=== PATIENT | male | born 1995 | race African-American/Black ===

== ENCOUNTER 2017-05-06 21:36 | Emergency (ER) | payer OTHER ==
[2017-05-06] MEDS ORDERED: HYDROcod/ACET 5/325 Prepack 6 PO STA (22:39)
--- NOTE | 2017-05-06 22:42 | ED Physician Documentation ---
PD HPI LOWER EXT INJURY - Stated complaint Stated Complaint: ANKLE INJURY - Chief complaint Chief Complaint: Ext Problem - History obtained from History obtained from: Patient - History of Present Illness PD HPI LOW EXT INJURY LOCATION: Other (He felt a pop in the posterior of his right ankle while sprinting tonight during football, he cannot walk or bear weight.) Review of Systems Constitutional: denies: Fever, Chills Ears: reports: Reviewed and negative Cardiac: reports: Reviewed and negative Respiratory: reports: Reviewed and negative PD PAST MEDICAL HISTORY - Past Medical History Past Medical History: No - Past Surgical History Past Surgical History: No - Present Medications Home Medications: Ambulatory Orders Medication Instructions Recorded Confirmed HYDROcod/ACETAM 5/325 [[place] 5/325] 1 - 2 ea PO Q6H PRN #15 tablet 05/06/17 - Allergies Allergies/Adverse Reactions: Allergies Allergy/AdvReac Type Severity Reaction Status Date / Time No Known Drug Allergies Allergy Verified 05/06/17 21:53 - Social History Does the pt smoke?: Yes Smoking Status: Current every day smoker Does the pt drink ETOH?: Yes ETOH Use: Liquor Does the pt have substance abuse?: No - Immunizations Immunizations are current?: Yes - POLST Patient has POLST: No PD ED PE NORMAL - Vitals Vital signs reviewed: Yes - General General: Alert and oriented X 3, No acute distress - Extremities Extremities: Other (There is no tenderness of the bones of the ankle, but very tender over the Achilles tendon and no function with Cornelius's test. He cannot plantar flex the foot.) - Neuro Neuro: Alert and oriented X 3, Normal speech - Psych Psych: Normal mood, Normal affect Results - Vitals Vitals: Vital Signs - 24 hr 05/06/17 21:51 Temperature 36.5 C Heart Rate 87 Respiratory 16 Rate Blood Pressure 156/80 H O2 Saturation 100 Oxygen O2 Source Room air Procedures - Splint (location) Right leg Splint applied by: Tech Type of splint: Fiberglass, Short leg, Posterior Other: Patient tolerated well, No complications, Neurovascular intact, Crutches provided Departure - Departure Disposition: 01 Home, Self Care Clinical Impression: Achilles rupture, right Qualifiers: Encounter type: initial encounter Qualified Code(s): S86.011A - Strain of right Achilles tendon, initial encounter Condition: Good Record reviewed to determine appropriate education?: Yes Instructions: ED Tendon Rupture Achilles Prescriptions: HYDROcod/ACETAM 5/325 [[place] 5/325] 1 - 2 ea PO Q6H PRN #15 tablet PRN Reason: Pain Comments[place] to [place]opedic surgeon. Do not walk or bear weight on that foot. Keep the splint on and dry. Do not drink or drive while taking narcotic pain medication. Note that many narcotic pain relievers also contain Tylenol/acetaminophen. Please ensure that your total dose of acetaminophen from all sources does not exceed 3 g (3000 mg) per day. You may get constipated while on this medication. Take a stool softener such as Colace twice a day while you are on it. Also add an ibvn-plm-[id number] laxative such as senna or MiraLAX on any day that you do not have a bowel movement. If you received a narcotic pain medication or sedative while in the emergency department, do not drive for the next 24 hours. Your blood pressure was elevated today on check into the emergency department. This does not mean that you have hypertension, it is a common phenomenon to come to the emergency department and have elevated blood pressure. I recommend that she see your primary care physician within the week to have it rechecked when you are feeling better.
[2017-05-06] MEDS ORDERED: HYDROcod/ACET 5/325 Prepack 6 PO ONE (22:47)
--- NOTE | 2017-05-06 23:17 | XRAY Preliminary Report ---
Exam: XR Ankle 3 View RT IMPRESSION: 1. No fracture or dislocation seen. [facility] SITE ID: [id number]
--- NOTE | 2017-05-06 23:20 | XRAY Report ---
EXAM: RIGHT ANKLE RADIOGRAPHY EXAM DATE: 05/06/2017 10:55 PM. CLINICAL HISTORY: Pain after injury. COMPARISON: None. TECHNIQUE: 3 views. FINDINGS: Bones: No fracture seen. Joints: No dislocation. Ankle mortise appears intact. No ankle joint effusion identified. Soft Tissues: Mild soft tissue swelling. IMPRESSION: 1. No fracture or dislocation seen. [facility] Referring Provider Line: [phone] SITE ID: [id number]
[2017-05-06 23:37] VITALS: BP 155/87
== END 2017-05-06 23:55 | disposition home or self-care (01) ==
LOC: ED 21:36
DX: S86.011A Strain of right Achilles tendon, initial encounter (principal); X50.0XXA Overexertion from strenuous movement or load, initial encounter; Y93.61 Activity, american tackle football; Y92.321 Football field as the place of occurrence of the external cause; F17.200 Nicotine dependence, unspecified, uncomplicated; R03.0 Elevated blood-pressure reading, without diagnosis of hypertension
CPT/HCPCS: 29515; 99283

== ENCOUNTER 2017-05-20 09:07 | Day surgery (SDC) | payer OTHER ==
[2017-05-20] MEDS ORDERED: ACETAMINOPHEN 1,000 MG/100 ML 100 ML IV ONE (09:22)
[2017-05-20] MEDS ORDERED: ceFAZolin 2 GM/50 ML 2 GM/50 ML BAG IV ONE (09:22)
[2017-05-20] MEDS ORDERED: LACTATED RINGERS 1,000 ML IV ONE ×2 (09:41→11:59)
[2017-05-20] MEDS ORDERED: fentaNYL 100 MCG/2 ML VIAL IVP ONE (11:15)
[2017-05-20] MEDS ORDERED: SUCCINYLCHOLINE 200 MG/10 ML VIAL IVP ONE (11:15)
[2017-05-20] MEDS ORDERED: ONDANSETRON 4 MG/2 ML VIAL IVP ONE (11:15)
[2017-05-20] MEDS ORDERED: DEXAMETHASONE 4 MG/ML VIAL IVP ONE (11:15)
[2017-05-20] MEDS ORDERED: KETOROLAC 30 MG/ML VIAL IVP ONE (11:15)
[2017-05-20] MEDS ORDERED: LIDOCAINE-MPF 2% 5 ML VIAL IM ONE (11:15)
[2017-05-20] MEDS ORDERED: ROCURONIUM 50 MG/5 ML VIAL IVP ONE (11:15)
[2017-05-20] MEDS ORDERED: MIDAZOLAM 2 MG/2 ML VIAL IVP ONE (11:15)
[2017-05-20] MEDS ORDERED: PROPOFOL 200 MG/20 ML VIAL IVP ONE (11:15)
[2017-05-20] MEDS ORDERED: BUPIVACAINE 0.25% PF 30 ML VIAL SUBQ ONE ×2 (11:23)
[2017-05-20] MEDS: fentaNYL 100 MCG/2 ML VIAL ONE ×2 (12:49→12:54)
[2017-05-20] MEDS: HYDROmorphone 1 MG/ML CARPUJECT ONE ×2 (12:59→13:07)
[2017-05-20] MEDS: HYDROmorphone 1 MG/ML SYRINGE ONE ×2 (13:21→13:28)
[2017-05-20] MEDS ORDERED: oxyCODONE 5 MG TABLET ONE (14:15)
[2017-05-20 14:38] VITALS: BP 147/90
--- NOTE | 2017-05-20 15:38 | OPERATIVE REPORT ---
DATE OF SURGERY: 05/20/2017 00:00:00 PREOPERATIVE DIAGNOSIS: Right Achilles tendon rupture. POSTOPERATIVE DIAGNOSIS: Right Achilles tendon rupture. PROCEDURE PERFORMED: Right Achilles tendon repair. SURGEON: Joseph Reynolds MD ANESTHESIA: General. COMMERCIAL ARTIST LETTERING: Tim Saavedra DO POSTOPERATIVE PLAN: Same day surgery discharge, nonweightbearing on right leg until the 2-week followup visit. At that point, he will transition in early active motion protocol. INDICATION FOR SURGERY: This is a 22-year-old male who sustained a complete right Achilles tendon tear while playing flag football 8 days ago. He was seen in the acute period, had an abnormal Cornelius test. The ankle was resting in relative dorsiflexion, and the sulcus sign was present. The risks and benefits of surgery were discussed with the patient. The risks specific to this surgery are wound healing issues, heel pain and damage to neurovascular structures. Additional risks of all surgery include pain, bleeding, infection, damage to nearby structures, need for further surgery, DVT, PE, anesthetic risks and . We discussed nonoperative treatment. The risk of nonoperative treatment is decreased strength and increased re-rupture rate. The patient opted for operative treatment and signed a written consent form. EXAMINATION UNDER ANESTHESIA FINDINGS: A prone exam reveals a Cornelius test without any dorsiflexion when the calf is squeezed, sulcus sign. SURGICAL FINDINGS: Complete Achilles tendon rupture near the musculotendinous junction. IMPLANTS 1. 4.75 SwiveLock by [employer] x2. 2. SutureTape x2. ANTIBIOTICS: Weight based Ancef. ESTIMATED BLOOD LOSS: 5 mL. URINE OUTPUT: Not recorded. IV FLUIDS: 1300. TOURNIQUET TIME: 72 minutes at 250 mmHg. SPECIMENS: None. COMPLICATIONS: None. DISPOSITION: Stable to PACU. DVT PROPHYLAXIS 1. Early, frequent ambulation. 2. SCDs while in the hospital. 3. Aspirin 325 mg taken daily for 4 weeks. PROCEDURE IN DETAIL: The patient was met in the preoperative holding area on the day of the procedure. Operative extremity was signed. Consent was verified. He desired to proceed. He was brought to the operating room and surrendered to Anesthesia. Once general anesthesia had been obtained, the patient was placed in the prone position. All bony prominences were well-padded. Examination under anesthesia was then performed. The right limb was then prepped and draped in a standard sterile fashion. Surgical timeout was held where we confirmed the patient's identity, procedure, allergies, antibiotics, images. All were in agreement, and we proceeded. An Esmarch was used to exsanguinate the limb, and the tourniquet was elevated to 250 mmHg. A 6 cm incision was made 1 cm medial to the midline along the course of the Achilles tendon. Hemostasis was obtained. Sharp dissection was carried down with a #15 blade until the peritenon was identified. This was then divided in line with its fibers but was not from the overlying soft tissue. I then developed the interval between the peritenon and the remnant Achilles tendon. A complete rupture was seen. It was closer to the muscle than is typical. There was still adequate tendinous tissue on the dorsal aspect of the proximal remnant for fixation, but muscle was present on the ventral surface at the level of the tear. The wound was then irrigated. The proximal remnant was freed from the surrounding peritenon. I then placed a FiberTape suture in a [place]ow fashion 4 bites up and 4 bites down on the lateral side and then did the same thing on the medial side. This left 4 suture ends coming out of the proximal tendon remnant that were nicely secured. These sutures were pulled on and found to be firmly affixed. I then made 2 stab incisions 1.5 cm apart from each other at the insertion of the Achilles down to the calcaneus. I bluntly spread down to the bone. The banana suture passer was then used to pass the proximal sutures through the distal Achilles remnant and out the incision. I then drilled the 2 holes for the SwiveLocks and tapped them and placed the anchors. A bump was used under the toe to put the ankle in the proper position, which was 10 degrees more plantar flexion than the resting posture of the contralateral side. The sutures were tensioned at this position, and the implants were placed. I then dorsiflexed the ankle to neutral and found the repair to be moving nicely as 1 unit. I then did use a 0 Vicryl with a tapered needle and performed a Silfverskiold epitendinous suture at the repair site. The wound was then irrigated copiously. Extra sutures were removed from the implants. Peritenon closure was done with 0 Vicryl tapered needle in a running fashion. The peritenon closure was a little tight. I therefore pie crusted it on the ventral surface both medially and laterally. This allowed for a nice closure of the peritenon over the repair. The skin was then closed with 2-0 Vicryl deep and 3-0 nylon in vertical mattress sutures. Sterile dressing was then applied, and a bulky Louis splint was placed with the ankle in plantar flexion. The patient was then awakened and transferred to the recovery room without issue. JOB #: [id number] EXT JOB #:[id number] [facility]
== END 2017-05-20 09:08 | disposition home or self-care (01) ==
LOC: SDS 09:07
PROVIDERS: ATTEND Orthopaedic Surgery
PROC: 0LQN0ZZ Repair Right Lower Leg Tendon, Open Approach (ICD-10-PCS; principal; 2017-05-20 10:30)
DX: S86.011A Strain of right Achilles tendon, initial encounter (principal)
CPT/HCPCS: 27650; A9270; J0131; J0690; J1170; J7120